=== PATIENT | male | born 1960 | race Caucasian/White ===

== ENCOUNTER 2016-10-19 11:00 | Outpatient (CLI) | payer OTHER ==
[~2016-10-19] VITALS: Ht 180.3 cm; Wt 130.4 kg
[2016-10-19 11:02] VITALS: BP 180/81; PULSE 60; RESP 18; Ht 180.3 cm; Wt 130.4 kg
[2016-10-19] MEDS ORDERED: NADO20TA10 PO (11:24)
[2016-10-19] MEDS ORDERED: FOLI-49 PO (11:24)
[2016-10-19] MEDS ORDERED: SPIR25TA PO (11:24)
[2016-10-19] MEDS ORDERED: FURO-110 PO (11:24)
[2016-10-19] MEDS ORDERED: SORAFENIB PO (11:24)
--- NOTE | 2016-10-19 16:53 | CONS ---
[facility] INITIAL OUTPATIENT INITIAL OUTPATIENT CONSULTATION NOTE PLACE OF SERVICE: [facility] DATE OF CONSULTATION: 10/19/2016 IMPRESSION AND PLAN: A very pleasant but unfortunate 56-year-old gentleman with multiple comorbid issues including BMI of 40 as well as genotype 3A hepatitis C that is present in the setting of cirrhosis, decompensated by ascites and evidence of portal hypertension and likely presence of hepatocellular carcinoma. There are no good surgical options and a liver resection in this patient would unfortunately lead to certain mortality given the degree of his liver disease. Local treatment options for the liver include transarterial chemoembolization, radioembolization and radiofrequency ablation or other thermal ablative techniques. Given his bilirubin of over 2, it would potentially limit the local treatments to transarterial chemoembolization only data on radiofrequency ablation is a discouraging and I do not believe that it has a role in the patient's care at this time. Systemic chemotherapy with Nexavar has already been initiated and since the patient is tolerating it well, it can certainly be continued for now. Finally, a consideration to liver transplantation should be given once we have more information on the location and extent of tumor burden. For this reason, I do believe that a liver- dedicated triple phase IV, CT scan of the abdomen and pelvis is needed in order to make further plans for the patient. I explained all of this to the patient and his girlfriend in detail including the risks, benefits and alternatives of each of these modalities as well as my strong recommendation against any surgical intervention short of a liver transplant, which I believe the patient may be eligible for if he fits into [facility] or even [facility] criteria. In his evaluation, it would be important to also measure his liver function tests again and to try and optimize them as best as possible to prepare him for local treatment for his liver. I answered all the patient's and family's questions to the best of my ability and they appeared to understand and agreed with the plan. With above assessment, I have recommended the followin. Liver dedicated triple phase IV, CT scan of abdomen and pelvis. 2. Repeat liver function and injury parameter testing and optimizing medical management to hopefully improve his bilirubin to safe level of below 2 to make him ineligible for local treatment of the liver. 3. Schedule patient for transarterial chemoembolization. 4. Multidisciplinary Tumor Board presentation. 5. Consideration for liver transplant depending on above. Thank you again for allowing us to participate in the care of this very pleasant gentleman and his wonderful family. If there are any questions, please feel free to call me at [phone]. TOTAL VISIT TIME: 60 minutes of which more than half was spent in [id number] discussion with the patient, discussions with his girlfriend as well as coordination of care between multiple physicians and providers. UPDATED CLINICAL SUMMARY: A very pleasant but unfortunate 56-year-old gentleman with hepatitis C cirrhosis as well as a number of other comorbidities including BMI of 40 who was diagnosed with a liver mass in the setting of cirrhosis somewhat decompensated with ascites, as well as portal hypertension with a platelet count of around 100 and alpha fetoprotein level of 25,065 dated 2016. All concerning for hepatocellular carcinoma. COMORBIDITIES: 1. BMI 40 2. Hepatitis C cirrhosis genotype 3A (10/01/2016) with FibroTest score 0.92 (F4 ) severe fibrosis and ActiTest score 0.54 (A2) with significant activity, decompensated by portal hypertension and at least 1 episode of upper GI bleeding that led to endoscopy as well as ascites formation. 3. Hypertension. 4. Hernia in 1985. 5. Appendix 1987. 6. Tonsillectomy 1973. 7. History of drug abuse with heroin addiction, quit 10 years ago, methamphetamine abuse until recently and drinking until about 10 years ago. 8. History of knee pain. 9. Onychomycosis. 10. Depression. 11. Left inguinal hernia repair. 12. Nexavar treatment 08/2016. HISTORY OF THE PRESENT ILLNESS: The patient is a very pleasant but unfortunate 56-year-old gentleman with above-mentioned comorbidities whom we were kindly asked to consult regarding management of a newly found liver lesion in the setting of cirrhotic liver and evidence of portal hypertension. Patient himself does not have any significant symptoms currently and reports no significant weight loss or change in appetite. No major difficulties with his bowel or bladder movements. He has had 1 episode of upper GI bleeding and is status post endoscopy. He believes hepatitis C was transmitted to him through intravenous drug use many years ago. He does not report significant drinking issues in the past and his last drink was a number of years ago. He has had no reported episodes of encephalopathy. No other prior malignancies. PAST SURGICAL HISTORY: No difficulties with his biliary system or his gallbladder. ALLERGIES: NO KNOWN DRUG ALLERGIES. MEDICATIONS: 1. Folic acid. 2. Lasix. 3. Corgard. 4. Aldactone. 5. Sorafenib. SOCIAL HISTORY: The patient lives with his girlfriend. He is . He has 4 children. He does not report any current smoking, drinking, or intravenous drug use, but has the above-mentioned history of drug abuse in the past. He has been incarcerated before. FAMILY HISTORY: No mention of any major malignancies with the exception of cancer in 1 relative (unknown details). Diabetes also runs in the family, but no heart disease, stroke or hypertension. REVIEW OF SYSTEMS: Other than the above-mentioned, there are no other pertinent positives or pertinent negatives in a complete 14-point review of systems. PHYSICAL EXAMINATION: GENERAL: The patient appears to be a very pleasant gentleman of descent, appearing stated age, sitting in a chair comfortably and in no acute distress. Significant amount of tattooing over the visible surface of the body. BMI is 40.1. VITAL SIGNS: Temperature 97.8, blood pressure 180/81, pulse 60, respiratory rate 18, pulse oximetry 97% on room air. HEENT: Normocephalic and atraumatic. Extraocular muscles and hearing are grossly intact bilaterally and symmetrically. Sclerae are nonicteric. Oral cavity is clear; oral mucosa appeared to be pink and moist. Dentition: fair to poor. NECK: Supple. There is no lymphadenopathy or JVD. There is no submental, submandibular or supraclavicular lymphadenopathy. CHEST: Rises symmetrically with each breath; patient is breathing comfortably. There are no audible wheezes, rales or rhonchi on the gross exam. HEART: Pulse is regular and palpable on the right wrist. Capillary refill was normal. Carotid pulses are palpable bilaterally and symmetrically in the neck. EXTREMITIES: Lower extremities contain no pitting edema around the ankles bilaterally and symmetrically. ABDOMEN: Soft, nontender and nondistended. There is no evidence of organomegaly, caput medusae, engorged subcutaneous veins or ascites. There is no peritoneal signs or guarding. SKIN: Appears to be pink and feels warm to touch. NEUROLOGIC: Awake, alert, and follows commands appropriately. LABORATORY DATA: Dated 09/22/2016 shows white blood cell count 3.4, hemoglobin 10.8, platelets 109. Electrolytes where fairly normal with CO2 of 25, albumin 2.3, bilirubin 2.9, alkaline phosphatase 271, AST 140, ALT 56. INR 1.2. Alpha fetoprotein more than 25,000. HIV negative, hepatitis C genotype 3A. IMAGING STUDIES: CT scan without contrast dated 09/14/2016 showed multiple liver masses in the setting of cirrhotic liver with splenomegaly and portal hypertension and ascites. The mass was read as large as 9.3 x 7.6 cm in the dome of the liver on the right side. Multiple hypodense lesions were described. Note that I personally reviewed the available images and I agree in general with their overall reported findings, although due to lack of IV contrast. It is very difficult to accurately describe the tumor burden and the extent of involvement of the liver. Dictated By: KATIUSKA FLOREZ/NTS Conf#: [id number] DID#: [id number] CC: Jesenia Soares M.D.; Chad Caldera MD; Valentin Fonseca MD;*EndCC* MTDD
== END 2016-10-19 17:00 | disposition home or self-care (01) ==
LOC: HPC 11:00
PROVIDERS: ATTEND Transplant Surgery
DX: B19.20 Unspecified viral hepatitis C without hepatic coma (principal); K74.60 Unspecified cirrhosis of liver; I10 Essential (primary) hypertension; R18.8 Other ascites; F14.10 Cocaine abuse, uncomplicated; F15.10 Other stimulant abuse, uncomplicated; B35.1 Tinea unguium; F32.9 Major depressive disorder, single episode, unspecified; R16.0 Hepatomegaly, not elsewhere classified; K76.6 Portal hypertension
CPT/HCPCS: G0463

== ENCOUNTER 2016-11-18 08:52 | Outpatient (CLI) | payer OTHER ==
[~2016-11-18] VITALS: Ht 180.3 cm; Wt 132.7 kg
[~2016-11-18 08:52] MED LIST: FOLI-49 PO; FURO-110 PO; NADO20TA10 PO; SORAFENIB PO; SPIR25TA PO
[2016-11-18 09:38] VITALS: BP 178/86; PULSE 66; RESP 18; Ht 180.3 cm; Wt 132.7 kg
--- NOTE | 2016-11-18 11:14 | PN ---
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 Recommended TACE. Discussed and verified at our local tumor board this am. Possible radioembolication as a second line of therapy if bilirubin can improve to below 2. Answered all questions. I answered all the patient's and family's questions to the best of my ability and they appeared to understand and agreed with the plan. With above assessment, I have recommended the followin. Schedule patient for transarterial chemoembolization. 2. F/u CT liver-dedicated 3 months post TACE 3. Continued multidisciplinary discussion Thank you again for allowing us to participate in the care of this very pleasant gentleman and his wonderful family. If there are any questions, please feel free to call me at [phone]. TOTAL VISIT TIME: 60 minutes of which more than half was spent in [id number] discussion with the patient, discussions with his girlfriend as well as coordination of care between multiple physicians and providers. UPDATED CLINICAL SUMMARY: A very pleasant but unfortunate 56-year-old gentleman with hepatitis C cirrhosis as well as a number of other comorbidities including BMI of 40 who was diagnosed with a liver mass in the setting of cirrhosis somewhat decompensated with ascites, as well as portal hypertension with a platelet count of around 100 and alpha fetoprotein level of 25,065 dated 2016. All concerning for hepatocellular carcinoma. COMORBIDITIES: 1. BMI 40 2. Hepatitis C cirrhosis genotype 3A (10/01/2016) with FibroTest score 0.92 (F4 ) severe fibrosis and ActiTest score 0.54 (A2) with significant activity, decompensated by portal hypertension and at least 1 episode of upper GI bleeding that led to endoscopy as well as ascites formation. 3. Hypertension. 4. Hernia in 1985. 5. Appendix 1987. 6. Tonsillectomy 1973. 7. History of drug abuse with heroin addiction, quit 10 years ago, methamphetamine abuse until recently and drinking until about 10 years ago. 8. History of knee pain. 9. Onychomycosis. 10. Depression. 11. Left inguinal hernia repair. 12. Nexavar treatment 08/2016. Subjective: No major events or complaints; no abd pain; no n/v/d; no sob or cp; + flatus; + BM and normal; + activity Objective: Vitals: See below Exam: GENERAL: On exam, the patient was sitting in a chair and appeared to be comfortable and in no acute distress. ABDOMEN: Soft, nontender and nondistended. There are no peritoneal signs or guarding. SKIN: Skin appears to be pink and feels warm to touch. NEUROLOGIC: Patient is awake, alert, and follows commands appropriately. Exam/Review of Systems Vital Signs Vitals Vital Signs Date Time Temp Pulse Resp B/P Pulse Ox O2 Delivery O2 Flow Rate FiO2 11/18/16 09:38 98.1 66 18 178/86 97 Room Air KATIUSKA SOUZA M.D. Nov 18, 2016 11:14
== END 2016-11-18 17:00 | disposition home or self-care (01) ==
LOC: HPC 08:52
PROVIDERS: ATTEND Transplant Surgery
DX: C22.0 Liver cell carcinoma (principal); B19.20 Unspecified viral hepatitis C without hepatic coma; I10 Essential (primary) hypertension
CPT/HCPCS: G0463

== ENCOUNTER 2017-05-12 10:00 | Outpatient (CLI) | payer OTHER ==
[~2017-05-12] VITALS: Ht 180.3 cm; Wt 134.1 kg
[2017-05-12 10:13] VITALS: Ht 180.3 cm; Wt 134.1 kg
[2017-05-12 10:14] VITALS: BP 132/63; PULSE 75; RESP 18
--- NOTE | 2017-05-12 11:20 | PN ---
Date/Time of Note Date/Time of Note DATE: 05/12/17 TIME: 10:58 Assessment/Plan Assessment/Plan Assessment/Plan [facility] Progress Note Date of Service: 05/12/17 Today's Impression & Plan: Overall stable. Newest liver CT done approximately 3 months after right hepatic artery chemoembolization shows slight increase in some of the lesions that are present in the liver, as well as possibly new lesions, all indicating progression of disease. The patient can certainly benefit from another attempt at TACE. Possible radioembolication as a second line of therapy if bilirubin can improve to below 2. Explained to the patient and his and answered all questions. Patient and family appear to understand and agreed with plans. With above assessment, I have recommended the followin. Schedule patient for transarterial chemoembolization. 2. F/u CT liver-dedicated 3 months post TACE 3. Continued multidisciplinary discussion Thank you again for allowing us to participate in the care of this very pleasant gentleman and his wonderful family. If there are any questions, please feel free to call me at [phone]. Nature of presenting problem: High risk Complexity of decision making: High complexity Disclaimers: 1. Inadvertent spelling and grammatical errors are likely due to electronic health record (EHR)/dictation software used and do not reflect on the quality of delivered patient care. 2. The electronic timestamp recorded on this note does not necessarily reflect the actual date and time of the visit or the service. 3. Portions of this note may have been created through electronic templates and computer algorithms that might bring in information either from the system or from other physicians and providers. Please note that such information may or may not contain errors, the occurrence of which are outside of my control. In general (but not always) this happens either in the beginning or at the end of the note. The portion of the note that I have created are generally done in 1 continuous block of text, flanked at the beginning and at the end by " ", and entered into one field in the EHR. 4. There may be other unanticipated errors in the note that are outside of my control. I can only attest to the portions of the note that I have created. UPDATED CLINICAL SUMMARY: A very pleasant but unfortunate 56-year-old gentleman with hepatitis C cirrhosis as well as a number of other comorbidities including BMI of 40 who was diagnosed with a liver mass in the setting of cirrhosis somewhat decompensated with ascites, as well as portal hypertension with a platelet count of around 100 and alpha fetoprotein level of 25,065 dated 2016. All concerning for hepatocellular carcinoma. S/p TACE Dirk Casiano MD R hepatic artery chemo embolization 12/18/16. AFP 03/08/17 6226. Bilirubin 4. COMORBIDITIES: 1. BMI 40 2. Hepatitis C cirrhosis genotype 3A (10/01/2016) with FibroTest score 0.92 (F4 ) severe fibrosis and ActiTest score 0.54 (A2) with significant activity, decompensated by portal hypertension and at least 1 episode of upper GI bleeding that led to endoscopy as well as ascites formation. 3. Hypertension. 4. Hernia in 1985. 5. Appendix 1987. 6. Tonsillectomy 1973. 7. History of drug abuse with heroin addiction, quit 10 years ago, methamphetamine abuse until recently and drinking until about 10 years ago. 8. History of knee pain. 9. Onychomycosis. 10. Depression. 11. Left inguinal hernia repair. 12. Nexavar treatment 08/2016. 13. S/p TACE Dirk Casiano MD R hepatic artery chemo embolization 12/18/16 14. AFP 03/08/17 6226. Bilirubin 4. Subjective: No major events or complaints; no abd pain; no n/v/d; no sob or cp; + flatus; + BM and normal; + activity. No major weight loss. Objective: Vitals: See below Exam: GENERAL: On exam, the patient was sitting in a chair and appeared to be comfortable and in no acute distress. ABDOMEN: Soft, nontender and nondistended. There are no peritoneal signs or guarding. SKIN: Skin appears to be pink and feels warm to touch. NEUROLOGIC: Patient is awake, alert, and follows commands appropriately. Exam/Review of Systems Vital Signs Vitals Vital Signs Date Time Temp Pulse Resp B/P Pulse Ox O2 Delivery O2 Flow Rate FiO2 05/12/17 10:14 98.0 75 18 132/63 97 Room Air KATIUSKA SOUZA M.D. May 12, 2017 11:20
== END 2017-05-12 17:00 | disposition home or self-care (01) ==
LOC: HPC 10:00
PROVIDERS: ATTEND Transplant Surgery
DX: C22.8 Malignant neoplasm of liver, primary, unspecified as to type (principal); B19.20 Unspecified viral hepatitis C without hepatic coma; K74.60 Unspecified cirrhosis of liver; I10 Essential (primary) hypertension; R18.8 Other ascites; K76.6 Portal hypertension
CPT/HCPCS: G0463